=== PATIENT | female | born 1960 | race Caucasian/White ===

== ENCOUNTER 2018-07-06 03:28 | Inpatient (IN) | payer BC, SELFPAY ==
[2018-07-06] VITALS (14 sets, daily range): BP systolic 91–118; BP diastolic 61–79; PULSE 73–130; RESP 14–18; TEMP 36.1–38.3; O2SAT 97–100; BMI 23.3; BMI 23.4
--- NOTE | 2018-07-06 03:30 | CT_ITS ---
STUDY: CT ABDOMEN AND PELVIS WITH CONTRAST REASON FOR EXAM: Female, 58 years old. Abdominal pain RADIATION DOSAGE (If Supplied By Facility): CTDIvol = ( 11.45 ) mGy, DLP = ( 486.85 ) mGycm TECHNIQUE: Transaxial images were obtained from the dome of the diaphragm to the symphysis pubis without oral contrast. 100ML ml of Isovue 300 contrast was administered. Sagittal and coronal images were reconstructed. Individualized dose optimization techniques were used for this CT. COMPARISON: None. FINDINGS: The lung bases are clear. There is a previous cholecystectomy with a mildly dilated intrahepatic biliary radicles and a prominent common bile duct 9.6 mm. Multiple filling defects are seen within the common bile duct and may represent calculi or sludge balls. The spleen is normal. The pancreas is normal. Both adrenals are normal. The left kidney is normal. There is a benign 2.1 cm right renal cyst. A second 8 mm cyst is in the posterior aspect of the right kidney. The stomach is normal. There is no bowel distention, acute appendicitis or diverticulitis. No constricting lesions are seen in large bowel. The abdominal wall is intact with no hernias. There is no ascites or any free intraperitoneal air. No indication of epiploic appendagitis there is a 8.1 x 4.3 cm area of diverticulitis in the mid abdomen. The vascular structures in the retroperitoneum are normal. There is no retrocrural, retroperitoneal or mesenteric adenopathy. The bones and joints are normal. The urinary bladder is normal.--The uterus is normal. There is no inguinal or pelvic adenopathy. There is no inguinal hernia. . CT/Abdomen/Pelvis W IV Cont ONLY IMPRESSION: A previous cholecystectomy with slightly dilated intrahepatic biliary radicles and a prominent common bile duct. (9.6 mm) There are multiple filling defects within the common bile duct. These may represent evidence of choledocholithiasis or sludge balls. No acute appendicitis or diverticulitis. 2 small renal cysts. Electronically Signed: Ralph Snyder, at 5:05 EDT Tel , Service support ,
--- NOTE | 2018-07-06 03:34 | ED.DCSUM_ITS ---
- ER Visit Summary Date of Service: 07/06/18 Chief Complaint: Abdominal pain History of Present Illness: The patient is a 58 F presents to the emergency department with abdominal pain. The patient is otherwise healthy which takes no daily medications. She states that tonight, she began have a dull ache in her midepigastric area that went through to her back. She states that the pain got worse throughout the night. She states that she was nauseated. States last time that she ate was yesterday for lunch. She had chicken noodle soup. She states it did not bring on the pain. The patient was with her friend sonal. She does admit to drinking wine. She denies any history of pancreatitis. She did have cholecystectomy about a year ago. She denies any fevers but does admit to some chills and sweats. She denies any chest pain. Physical Examination: Vital signs reviewed General: Well-nourished, well-developed Head: Normocephalic, atraumatic Eyes: Pupils equal and reactive, extraocular muscles intact Neck, supple, no lymphadenopathy Heart: Regular rate and rhythm Respiratory: No distress, clear bilaterally Abdomen: Soft, tender in the midepigastric area without rebound or guarding, nondistended, no peritoneal signs Back: Nontender Extremities: Nontender, no edema, no cords Skin: Normal color no rash Neuro: Alert and oriented, no focal or lateralizing deficits Test Results: [] Emergency Department Course and Treatment: The patient presents with midepigastric pain into her right upper quadrant. She actually states that she had the same pain before when she had of her gallbladder out. She was admitted for 5 days at [facility] 1 year ago. Based on her history, it sounds like she had gallstone pancreatitis. She underwent ERCP and then 2 days later had her gallbladder removed. She states she has been doing well since. Sonal was the first time that she had pain this severe. IV was established. Patient was given analgesics and antiemetics. She had marked improvement of her pain. Screening labs do show leukocytosis. She does have obstructive pattern of her LFTs. I did obtain a CT of the abdomen and pelvis. This does show evidence of cold the toe cholelithiasis with distention of the common bile duct. The patient was discussed with Dr. Baptiste. She will be admitted for likely ERCP and management of her biliary duct obstruction. Patient was started on broad-spectrum antibiotics. Treatment Plan: [] Disposition: Admission Impression: 1. Biliary obstruction secondary to choledocholithiasis This note was generated with [employer] dictation software. It may contain incorrect words, spelling, and punctuation that were not noted in review of the chart prior to signing ED Disposition - Plan for ED Patient: Chief Complaint: Abd Pain Referrals: Trenton Pedersen MD [Primary Care Provider] -
[2018-07-06] MEDS: 0.9% Normal Saline 1,000 ML 1000 ML IV (03:36)
[2018-07-06] MEDS: Ondansetron 4 MG/2 ML Vial IV ×2 (03:36→11:53)
[2018-07-06] MEDS: Morphine 4 MG/ML Syringe IV (03:37)
[2018-07-06 03:52] LABS: Absolute Lymphocyte Count 2.61 X10^3/ul (0.83-4.51); Absolute Neutrophil Count 9.5 X10^3/uL (2.0-7.7); Basophil# 0.03 X10^3/uL; Basophil% 0.2 % (0-1); Eosinophil# 0.18 X10^3/uL; Eosinophils% 1.4 % (0-5); Hematocrit 36.3 % (37-47); Hemoglobin 12.1 g/dl (12.0-15.0); Lymphocyte # 2.61 X10^3/ul (4.0); Lymphocyte % 20.1 % (19-41); Mean Corp Hgb Conc 33.3 g/gl (32-36); Mean Corpuscular Hgb 30.9 pg (27.0-32.0); Mean Corpuscular Volume 92.8 fL (81-99); Monocyte# 0.68 X10^3/uL; Monocyte% 5.2 % (0-10); Neutrophil # 9.46 X10^3/uL (2.7-7.7); Neutrophil % 72.9 % (47-70); POSITIVE COUNT NO; POSITIVE DIFFERENTIAL NO; POSITIVE MORPHOLOGY NO; Platelet Count 334 K/mm3 (150-450); RBC Distribution Width CV 13.6 % (11.6-14.6); RBC Distribution Width SD 45.3 fl (35.1-43.9); Red Blood Count 3.91 M/mm3 (4.2-5.4)
[2018-07-06 04:13] LABS: Bacteria 0 SEEN /hpf (None Seen); Mucous, Urine 0 SEEN /hpf (<or=2+); Red Blood Cells-Urine 0 SEEN /hpf (0-5); Squamous Epithelial Cells - UA 0 SEEN /hpf (5-10)
[2018-07-06 04:15] LABS: Color, Urine Yellow (Yellow); Glucose, Dipstick Normal (Normal); Ketone-Dipstick 15 mg/dl (Negative); Leukocyte Esterase-Dipstick 25 /ul (Negative); Nitrite-Dipstick Negative (Negative); Occult Blood-Urine 10 /ul (Negative); Protein-Dipstick Negative (Negative); Urine Clarity Clear (Clear); Urine Urobilinogen 4 mg/dl (Normal)
[2018-07-06 04:22] LABS: Urine Bilirubin Dipstick 1 mg/dL (Negative); White Blood Cells 0-5 SEEN /hpf (0-5)
[2018-07-06 04:29] LABS: ALB/GLOB Ratio 0.9 RATIO (0.9-2.4); AST(SGOT) 278 U/L (15-37); Alanine Aminotransfer ALT/SGPT 500 U/L (13-56); Albumin, Serum 3.6 g/dL (3.2-5.0); Alkaline Phosphatase 352 U/L (45-117); Anion Gap 9 (5-15); BUN 12 mg/dL (7-18); BUN/Creat Ratio 15.6 RATIO (10-20); Calcium,Total 9.2 mg/dL (8.5-10.1); Chloride 104 mmol/L (98-107); Creatinine, Serum 0.77 mg/dL (0.55-1.02); EST Glomerular Filtration Rate 82 mL/min (>60); Est Glom Filt Rate - Afr Amer 99 mL/min (>60); Estimated Creatinine Clearance 65.07 ml/min; Glucose 134 mg/dL (74-106); Lipase 523 U/L (73-393); Potassium 3.3 mmol/L (3.5-5.1); Protein, Total 7.6 g/dL (6.4-8.2); Sodium Level 141 mmol/L (136-145)
[2018-07-06] MEDS: 0.9% Normal Saline 1,000 ML 150 ML IV (05:38)
[2018-07-06] MEDS: Lactated Ringers 1,000 ML 150 ML IV ×2 (06:27→11:53)
[2018-07-06] MEDS: Lactated Ringers 1,000 ML 999 ML IV (06:41)
[2018-07-06] MEDS: Acetaminophen 325 MG Tablet 650 MG PO (06:44)
--- NOTE | 2018-07-06 07:59 | PCM.HP.STD ---
Problem List (1) Cholangitis Status: Acute (2) Choledocholithiasis Status: Acute History of Present Illness Date of Admission: 07/06/18 The patient is a 58 year old F who presented with right upper quadrant and epigastric pain since this morning. The patient says she is not having any nausea or vomiting. She did not have a fever upon presentation to the emergency room but did develop one on the floor. The patient reports that she had her gallbladder out and subsequent ERCP about 1 year ago for choledocholithiasis. Past Medical History Allergies ciprofloxacin [From Cipro] Allergy (Verified 07/06/18 03:34) Hives Home Medications: Ambulatory Orders Medication Instructions Recorded NK [NK] 07/06/18 Surgical History: cholecystectomy Smoking Status: Former smoker - *Family History Maternal History Items: No pertinent history Review of Systems Constitutional: Reports: Anorexia, Fever. Denies: Chills HEENT: Denies: Difficulty Swallowing Cardiovascular: Denies: Chest Pain Respiratory: Denies: Cough, Pleuritic Pain, Shortness of Breath Gastrointestinal: Reports: Abdominal Pain, Nausea. Denies: Vomiting Genitourinary: Denies: Dysuria Musculoskeletal: Denies: Joint Tenderness Skin: Reports: Jaundice. Denies: Dryness Psychiatric: Denies: Anxiety Hematologic/ Lymphatic: Denies: Anemia VTE Information - Inpt Only VTE Present on Admission: No VTE Mechan Device Prophylaxis: SCD's Patient Problems: Active and Suspected Problems Cholangitis (Acute) Choledocholithiasis (Acute) - Physical Exam General: Alert, Oriented x3, Cooperative HEENT: Atraumatic Oral: Moist Mucosa Neck: No JVD Lungs: Normal air movement Cardiovascular: Regular Rhythm, Tachycardic Abdomen: Soft, Non-Distended, Tender - Right upper quadrant and epigastric Extremities: No clubbing Musculoskeletal: No Muscle Wasting Neurological: Cranial nerves II-XII grossly intact Psych/Mental Status: Normal Affect Vital Signs Temp Pulse Resp BP Pulse Ox 99.4 F H 130 H 18 117/70 97 07/06/18 07:41 07/06/18 07:47 07/06/18 07:41 07/06/18 07:41 07/06/18 07:41 Oxygen Delivery Method Room Air Weight: 132 lb Body Mass Index (BMI) 23.3 Clinical Impression(s) from Imaging Studies Abdomen/Pelvis CT 07/06/18 03:30 IMPRESSION: A previous cholecystectomy with slightly dilated intrahepatic biliary radicles and a prominent common bile duct. (9.6 mm) There are multiple filling defects within the common bile duct. These may represent evidence of choledocholithiasis or sludge balls. No acute appendicitis or diverticulitis. 2 small renal cysts. Electronically Signed: Ralph Snyder, at 5:05 EDT Tel , Service support , Assessment/Plan All Active Problems Cholangitis (Acute) Choledocholithiasis (Acute) 58-year-old female with choledocholithiasis and ascending cholangitis 1. The patient's lipase was slightly elevated indicating pancreatitis and the patient had epigastric pain. CT scan reveals choledocholithiasis with dilated biliary ducts and her LFTs are elevated as well. The patient is also tachycardic with a fever. Given all these things I believe she has ascending cholangitis. She has been started on antibiotics and given a fluid bolus as well as Tylenol for her fever. 2. I recommend ERCP with stone removal and placement of stent for the cholangitis. I explained the procedure in detail to the patient and she has had an ERCP in the past. I explained the risks of the procedure including but not limited to bleeding, infection, perforation of the bile duct or bowels, worsening of the pancreatitis. The patient understands the risks and is willing to proceed with ERCP. Anival Mahoney MD Pager: [facility] [address] [place] [address] [address] [place] [address] Office:
--- NOTE | 2018-07-06 08:04 | HP.PCM_ITS ---
Problem List (1) Cholangitis Status: Acute (2) Choledocholithiasis Status: Acute History of Present Illness Date of Admission: 07/06/18 The patient is a 58 year old F who presented with right upper quadrant and epigastric pain since this morning. The patient says she is not having any nausea or vomiting. She did not have a fever upon presentation to the emergency room but did develop one on the floor. The patient reports that she had her gallbladder out and subsequent ERCP about 1 year ago for choledocholithiasis. Past Medical History Allergies ciprofloxacin [From Cipro] Allergy (Verified 07/06/18 03:34) Hives Home Medications: Ambulatory Orders Medication Instructions Recorded NK [NK] 07/06/18 Surgical History: cholecystectomy Smoking Status: Former smoker - *Family History Maternal History Items: No pertinent history Review of Systems Constitutional: Reports: Anorexia, Fever. Denies: Chills HEENT: Denies: Difficulty Swallowing Cardiovascular: Denies: Chest Pain Respiratory: Denies: Cough, Pleuritic Pain, Shortness of Breath Gastrointestinal: Reports: Abdominal Pain, Nausea. Denies: Vomiting Genitourinary: Denies: Dysuria Musculoskeletal: Denies: Joint Tenderness Skin: Reports: Jaundice. Denies: Dryness Psychiatric: Denies: Anxiety Hematologic/ Lymphatic: Denies: Anemia VTE Information - Inpt Only VTE Present on Admission: No VTE Mechan Device Prophylaxis: SCD's Patient Problems: Active and Suspected Problems Cholangitis (Acute) Choledocholithiasis (Acute) - Physical Exam General: Alert, Oriented x3, Cooperative HEENT: Atraumatic Oral: Moist Mucosa Neck: No JVD Lungs: Normal air movement Cardiovascular: Regular Rhythm, Tachycardic Abdomen: Soft, Non-Distended, Tender - Right upper quadrant and epigastric Extremities: No clubbing Musculoskeletal: No Muscle Wasting Neurological: Cranial nerves II-XII grossly intact Psych/Mental Status: Normal Affect Vital Signs Temp Pulse Resp BP Pulse Ox 99.4 F H 130 H 18 117/70 97 07/06/18 07:41 07/06/18 07:47 07/06/18 07:41 07/06/18 07:41 07/06/18 07:41 Oxygen Delivery Method Room Air Weight: 132 lb Body Mass Index (BMI) 23.3 Clinical Impression(s) from Imaging Studies Abdomen/Pelvis CT 07/06/18 03:30 IMPRESSION: A previous cholecystectomy with slightly dilated intrahepatic biliary radicles and a prominent common bile duct. (9.6 mm) There are multiple filling defects within the common bile duct. These may represent evidence of choledocholithiasis or sludge balls. No acute appendicitis or diverticulitis. 2 small renal cysts. Electronically Signed: Ralph Snyder, at 5:05 EDT Tel , Service support , Assessment/Plan All Active Problems Cholangitis (Acute) Choledocholithiasis (Acute) 58-year-old female with choledocholithiasis and ascending cholangitis 1. The patient's lipase was slightly elevated indicating pancreatitis and the patient had epigastric pain. CT scan reveals choledocholithiasis with dilated biliary ducts and her LFTs are elevated as well. The patient is also tachycardic with a fever. Given all these things I believe she has ascending cholangitis. She has been started on antibiotics and given a fluid bolus as well as Tylenol for her fever. 2. I recommend ERCP with stone removal and placement of stent for the cholangitis. I explained the procedure in detail to the patient and she has had an ERCP in the past. I explained the risks of the procedure including but not limited to bleeding, infection, perforation of the bile duct or bowels, worsening of the pancreatitis. The patient understands the risks and is willing to proceed with ERCP. Anival Mahoney MD Pager: [facility] [address] [place] [address] [address] [place] [address] Office:
--- NOTE | 2018-07-06 10:40 | CASEMGMT ---
ABELINO RAJPUT Face to Face with patient for initial transition planning/care coordination assessment. RN CM introduced self and role at [facility]. Patient lying in bed, alert and oriented, at bedside. Patient willing to participate in assessment and is able to answer all questions appropriately. Care providers, pharmacy, and demographics verified. Patient lives in house with . Patient is independent at home. Patient wishes to discharge home, denies need for home health at this time. Patient states she has no further needs or concerns at this time. CM to follow for discharge planning needs that may arise. Disposition Plan: Patient to discharge home with family support and follow-up plans in place. Mary SINCLAIR, RN, CM
[2018-07-06] MEDS: 0.9% NaCl Peripheral Flush Adult/Peds IV (11:53)
--- NOTE | 2018-07-06 12:02 | NURSING ---
REport called to Augusta Masters RN
--- NOTE | 2018-07-06 12:40 | RAD_ITS ---
STUDY: ERCP. REASON FOR EXAM: Female, 58 years old. Biliary obstruction. FLUOROSCOPY TIME (if supplied): (4 minutes) minutes/seconds TECHNIQUE: An ERCP was performed by the surgeon. Contrast was injected into the common bile duct. COMPARISON: Comparison is made with prior CT scan of the abdomen done earlier in the day. FINDINGS: Contrast was injected into the common bile duct. The common bile duct is dilated. No contrast is seen flowing into the duodenum. A biliary stent was then placed. RAD/ERCP Biliary Only IMPRESSION: Dilated common bile duct with placement of a biliary stent. Electronically Signed: Parviz Goddard MD at 13:39 EDT Tel [phone], Service support ,
--- NOTE | 2018-07-06 13:16 | PCM.OPRPT ---
Problem List (1) Cholangitis Status: Acute (2) Choledocholithiasis Status: Acute Report of Operation Date of Procedure: 07/06/18 Pre-Operative Diagnosis: 1. Choledocholithiasis with obstruction. 2. Ascending cholangitis Post-Operative Diagnosis: Same Surgery/Procedure Performed:: ERCP with sphincterotomy and stone removal and stent placement Description of Procedure: After describing the risks of the procedure as well as the procedure in detail informed consent was obtained. Patient was brought to the operating room and general anesthesia was induced. The patient was then placed in a semi-prone position. Next, the side-viewing endoscope was placed into the mouth and down into the stomach and advanced into the duodenum. The ampulla was located. A sphinctertome was used to cannulate the common bile duct and location was confirmed on fluoroscopy. The guidewire was placed in the common bile duct and using sphincterotome and electrocautery a sphincterotomy was performed. Hemostasis was good. Next the sphincterotome was removed leaving the guidewire in the common bile duct. A balloon was then introduced over the guidewire and the common bile duct and several sweeps were performed. The patient did have a lot of sludge and debris but there was a stone identified. A basket was then placed into the common bile duct and the stone was crushed. Next the basket was removed from the common bile duct and the balloon was placed back into the common bile duct and several sweeps were performed and a lot of debris was removed from the common bile duct. There was purulent material as well. Once the duct was adequately clear of stones, a 10 [place] by 5 cm balloon was placed into the common bile duct. This was deployed under fluoroscopy. The guidewire was then removed. There was good flow of bile and purulent material through the stent at the end of the case. The side-viewing scope was then withdrawn back into the stomach and the stomach was suctioned. Next, the scope was removed. The patient was taken to PACU in stable condition. The patient tolerated the procedure well. Grafts/Implants Used: 10 Argentine 5 cm biliary plastic stent
[2018-07-06] MEDS: Piperacil/Tazobactam 3.375 GM/50 ML ML IV ×2 (13:48→20:54)
[2018-07-06] MEDS: Lactated Ringers 1,000 ML 100 ML IV (20:56)
[2018-07-07 02:50] VITALS: BP 94/54; PULSE 70; RESP 14; TEMP 36.4; O2SAT 97
[2018-07-07] MEDS: Piperacil/Tazobactam 3.375 GM/50 ML ML IV (05:43)
[2018-07-07 05:46] VITALS: BP 99/55; PULSE 79; RESP 16; TEMP 36.5; O2SAT 96
[2018-07-07 06:19] LABS: Absolute Lymphocyte Count 1.23 X10^3/ul (0.83-4.51); Absolute Neutrophil Count 5.7 X10^3/uL (2.0-7.7); Basophil# 0.01 X10^3/uL; Basophil% 0.1 % (0-1); Eosinophil# 0.03 X10^3/uL; Eosinophils% 0.4 % (0-5); Hematocrit 33.7 % (37-47); Hemoglobin 11.1 g/dl (12.0-15.0); Lymphocyte # 1.23 X10^3/ul (4.0); Lymphocyte % 16.5 % (19-41); Mean Corp Hgb Conc 32.9 g/gl (32-36); Mean Corpuscular Hgb 30.7 pg (27.0-32.0); Mean Corpuscular Volume 93.1 fL (81-99); Mean Platelet Vol. 9.2 fl (6.2-12.0); Monocyte# 0.52 X10^3/uL; Neutrophil # 5.66 X10^3/uL (2.7-7.7); Neutrophil % 75.9 % (47-70); Platelet Count 277 K/mm3 (150-450); RBC Distribution Width CV 14.1 % (11.6-14.6); RBC Distribution Width SD 46.3 fl (35.1-43.9); Red Blood Count 3.62 M/mm3 (4.2-5.4); White Blood Count 7.5 K/mm3 (4.4-11.0)
[2018-07-07 06:28] LABS: POSITIVE COUNT NO; POSITIVE DIFFERENTIAL NO; POSITIVE MORPHOLOGY NO
[2018-07-07 06:36] LABS: ALB/GLOB Ratio 0.8 RATIO (0.9-2.4); AST(SGOT) 166 U/L (15-37); Alanine Aminotransfer ALT/SGPT 417 U/L (13-56); Albumin, Serum 2.9 g/dL (3.2-5.0); Alkaline Phosphatase 291 U/L (45-117); Anion Gap 8 (5-15); BUN 9 mg/dL (7-18); BUN/Creat Ratio 12.9 RATIO (10-20); Calcium,Total 8.7 mg/dL (8.5-10.1); Chloride 108 mmol/L (98-107); EST Glomerular Filtration Rate 92 mL/min (>60); Est Glom Filt Rate - Afr Amer 111 mL/min (>60); Estimated Creatinine Clearance 71.58 ml/min; Globulin 3.5 g/dL (2.2-4.2); Glucose 96 mg/dL (74-106); Potassium 3.9 mmol/L (3.5-5.1); Protein, Total 6.4 g/dL (6.4-8.2); Sodium Level 143 mmol/L (136-145)
--- NOTE | 2018-07-07 08:26 | PN.SURG_ITS ---
Patient Problems: Active and Suspected Problems Cholangitis (Acute) Choledocholithiasis (Acute) Subjective: Patient is doing well this morning with no abdominal pain. She is tolerating clear liquid diet with no nausea or vomiting. - Physical Exam General: Alert, Oriented x3, Cooperative, No apparent distress HEENT: Atraumatic Lungs: Normal air movement Cardiovascular: Regular rate, Regular Rhythm Abdomen: Soft, Non Tender, Non-Distended Vital Signs Temp Pulse Resp BP Pulse Ox 97.7 F L 79 16 99/55 L 96 07/07/18 05:46 07/07/18 05:46 07/07/18 05:46 07/07/18 05:46 07/07/18 05:46 Oxygen Delivery Method Room Air Weight: 131 lb 15.852 oz Body Mass Index (BMI) 23.3 Intake and Output for Last 24 Hours 07/05/18 07/06/18 07/07/18 23:59 23:59 23:59 Intake Total 2782 / 2782 482 / 482 Output Total 3525 / 3525 300 / 300 Balance -743 / -743 182 / 182 Laboratory Tests Past 24 Hrs 07/07/18 07/07/18 06:00 06:00 WBC 7.5 RBC 3.62 L Hgb 11.1 L Hct 33.7 L MCV 93.1 MCH 30.7 MCHC 32.9 RDW 14.1 RDW Differential 46.3 H Plt Count 277 MPV 9.2 Immature Gran % (Auto) 0.100 Neut % (Auto) 75.9 H Lymph % (Auto) 16.5 L [place] % (Auto) 7.0 Eos % (Auto) 0.4 Baso % (Auto) 0.1 Absolute Neuts (auto) 5.7 Absolute Lymphs (auto) 1.23 Total Counted Not Reportable Sodium 143 Potassium 3.9 Chloride 108 H Carbon Dioxide 27.0 Anion Gap 8 BUN 9 Creatinine 0.70 Estim Creat Clear Calc 71.58 Est GFR (MDRD) Af Amer 111 Est GFR (MDRD) Non-Af 92 BUN/Creatinine Ratio 12.9 Glucose 96 Calcium 8.7 Total Bilirubin 1.60 H AST 166 H ALT 417 H Alkaline Phosphatase 291 H Total Protein 6.4 Albumin 2.9 L Globulin 3.5 Albumin/Globulin Ratio 0.8 L Medical Necessity - Tobacco Use Smoking Status: Former smoker Assessment/Plan All Active Problems Cholangitis (Acute) Choledocholithiasis (Acute) 58-year-old female with cholangitis status post ERCP with stent placement 1. Patient is doing well. If she tolerates regular diet she may be discharged home. 2. I will start the patient on p.o. antibiotics and continue for 5 days for cholangitis. 3. I will see the patient back for outpatient ERCP and stent removal in 2-4 weeks. Anival Mahoney MD Pager: [facility] [address] [place] [address], [address] [place] [address] Office:
--- NOTE | 2018-07-07 08:26 | PCM.DC.GB ---
Discharge Diet: Light diet - advance as tolerated Discharge Activity: Return to Normal Activity Weight Bearing Status: Weight bearing as tolerated Lifting Restrictions: none Call your doctor if you observe: Fever of 101 or Higher Allergies/Adverse Reactions: Allergies ciprofloxacin [From Cipro] Allergy (Verified 07/06/18 03:34) Hives Medications to take at Discharge Amoxicillin/Potassium Clav [Augmentin 875-125 Tablet] 1 ea PO BID #10 tab 07/07/18 The following prescriptions were given: Amoxicillin/Potassium Clav [Augmentin 875-125 Tablet] 1 ea PO BID #10 tab Primary Care Physician: Trenton Pedersen MD [Primary Care Provider] - Test Results: Test results from this visit will be discussed in further detail at your follow-up appointment, if applicable. Please Follow Up With: Anival Mahoney MD When: follow up as needed, my office will call to schedule repeat ERCP
--- NOTE | 2018-07-07 08:28 | PCM.DC.SUM ---
Discharge Date and Diagnosis - Problem List Patient Problems: Active and Suspected Problems Cholangitis (Acute) Choledocholithiasis (Acute) Date of Admission: 07/06/18 Date of Discharge: 07/07/18 - Primary Discharge Diagnosis Active and Suspected Problems Cholangitis (Acute) Choledocholithiasis (Acute) Hospital Course and Treatment Imaging Results: Clinical Impression(s) from Imaging Studies Abdomen/Pelvis CT 07/06/18 03:30 IMPRESSION: A previous cholecystectomy with slightly dilated intrahepatic biliary radicles and a prominent common bile duct. (9.6 mm) There are multiple filling defects within the common bile duct. These may represent evidence of choledocholithiasis or sludge balls. No acute appendicitis or diverticulitis. 2 small renal cysts. Electronically Signed: Ralph Snyder, at 5:05 EDT Tel , Service support , ERCP X-Ray 07/06/18 12:40 IMPRESSION: Dilated common bile duct with placement of a biliary stent. Electronically Signed: Parviz Goddard MD at 13:39 EDT Tel [phone], Service support , Operations: ERCP Procedures: None Summary of Care Provided: The patient is a 58 year old F who presented with right-sided abdominal pain and nausea. The patient had a CT scan which revealed dilated biliary ducts as well as an obstruction. The patient was also febrile with an elevated white count and jaundice. The patient had what seems to be ascending cholangitis. She underwent ERCP with stent placement and purulent material was removed from the common bile duct. After the procedure she was tolerating a regular diet and her abdominal pain resolved and her LFTs decreased. She will be discharged home on oral antibiotic and return in 2-4 weeks for ERCP with stent removal. Discharge Diet: Light diet - advance as tolerated Discharge Activity: Return to Normal Activity Weight Bearing Status: Weight bearing as tolerated Call your doctor if you observe: Fever of 101 or Higher Home Medications: Medications to take at Discharge Amoxicillin/Potassium Clav [Augmentin 875-125 Tablet] 1 ea PO BID #10 tab 07/07/18 Following Prescrptions Were Given to Patient: Amoxicillin/Potassium Clav [Augmentin 875-125 Tablet] 1 ea PO BID #10 tab Primary Care Physician: Trenton Pedersen MD [Primary Care Provider] - Please Follow Up With: Anival Mahoney MD When: follow up as needed, my office will call to schedule repeat ERCP Medical Necessity - Tobacco Use Smoking Status: Former smoker Meaningful Use Info Meaningful Use Diagnoses (Choose all that apply): None applicable
[2018-07-07 11:04] VITALS: BP 99/57; PULSE 78; RESP 18; TEMP 36.8; O2SAT 97
== END 2018-07-07 11:50 | disposition home or self-care (01) | DRG 445 ==
LOC: ED 04:01 → MS3 05:34
PROVIDERS: Admitting Provider Surgery; Emergency Provider Emergency Medicine; Family Provider Family Medicine; PCP Family Medicine; Visit Provider Surgery
PROC: 0FC98ZZ Extirpation of Matter from Common Bile Duct, Via Natural or Artificial Opening Endoscopic (ICD-10-PCS; CPT 43260; principal; 2018-07-06 11:30)
DX: K80.31 Calculus of bile duct with cholangitis, unspecified, with obstruction (principal); Z90.49 Acquired absence of other specified parts of digestive tract
CPT/HCPCS: 36415; 74177; 74328; 76000; 80053; 81001; 83690; 85025; 99282; J7030; J7120; Q9967; A4216; J2405

== ENCOUNTER 2018-08-04 09:16 | Day surgery (SDC) | payer BC, SELFPAY ==
[2018-08-04] VITALS (8 sets, daily range): BP systolic 102–126; BP diastolic 56–85; PULSE 73–98; RESP 16; TEMP 36.5–37.5; O2SAT 98–100; BMI 24.2
--- NOTE | 2018-08-04 09:27 | EKG12_ITS ---
Test Reason : PREOP Blood Pressure : / mmHG Vent. Rate : 096 BPM Atrial Rate : 096 BPM P-R Int : 148 ms QRS Dur : 086 ms QT Int : 364 ms P-R-T Axes : 067 040 021 degrees QTc Int : 459 ms Normal sinus rhythm Normal ECG When compared with ECG of 23-NOV-2011 08:51, T wave amplitude has decreased in Anterior leads Confirmed by JOAQUIN MARCIAL, FEMI ([id number]), science editor JULIUS HERCULES ([id number]) on 08/08/2018 4:10:06 PM Referred By: Anival Mahoney Confirmed By:FEMI NUÑEZ MD
--- NOTE | 2018-08-04 10:24 | PCM.HP.STD ---
Problem List (1) Cholangitis Status: Acute (2) Choledocholithiasis Status: Acute History of Present Illness Date of Admission: 08/04/18 The patient is a 58 year old F who was recently admitted for a ascending cholangitis and underwent ERCP. On an ERCP she did have sludge with purulence in the common bile duct. A stent was placed. She is here for stent removal. She is having no issues since surgery. Past Medical History Allergies ciprofloxacin [From Cipro] Allergy (Verified 08/02/18 15:29) Hives Home Medications: Ambulatory Orders Medication Instructions Recorded NK 08/02/18 Surgical History: cholecystectomy Smoking Status: Former smoker - *Family History Maternal History Items: No pertinent history Review of Systems Constitutional: Denies: Anorexia, Chills HEENT: Denies: Head Aches, Sinus Congestion, Sinus Drainage Cardiovascular: Denies: Chest Pain, Palpitations Respiratory: Denies: Cough, Shortness of breath at rest, Sputum production Gastrointestinal: Denies: Abdominal Pain, Nausea, Vomiting Genitourinary: Denies: Dysuria Musculoskeletal: Denies: Joint Pain, Joint Tenderness Skin: Denies: Rash, Wounds Neurological: Denies: Numbness, Tingling, Focal weakness Psychiatric: Denies: Anxiety, Depression, Homicidal Ideations, Suicidal Ideations Hematologic/ Lymphatic: Denies: Easy Bruising, Easy Bleeding VTE Information - Inpt Only VTE Present on Admission: No VTE Mechan Device Prophylaxis: SCD's - Physical Exam General: Alert, Oriented x3, Cooperative HEENT: Atraumatic, PERRLA, EOMI, Normocephalic Neck: Supple, No JVD, Negative Carotid Bruits Lungs: Clear to auscultation, Normal air movement Cardiovascular: Regular rate, No murmurs Abdomen: Bowel Sounds Present, Soft, Non Tender Extremities: No edema, Capillary Refill Less than 3 Seconds Skin: No rashes, No breakdown Musculoskeletal: No Tenderness to Palpation of Joints or Extremities Neurological: Cranial nerves II-XII grossly intact Psych/Mental Status: Normal Affect, Appropriate Vital Signs Temp Pulse Resp BP Pulse Ox 99.5 F H 98 16 126/85 H 99 08/04/18 09:38 08/04/18 09:38 08/04/18 09:38 08/04/18 09:38 08/04/18 09:38 Oxygen Delivery Method Room Air Weight: 136 lb 10.986 oz Body Mass Index (BMI) 24.2 Assessment/Plan All Active Problems Cholangitis (Acute) Choledocholithiasis (Acute) 58-year-old female with a ascending cholangitis and stent 1. Patient is here for ERCP with stent removal. I explained that I would remove the stent and check for any more debris in the common bile duct. If the common bile duct is clear and there is clean flowing bile I will remove the stent and be done with the procedure. I explained the risks of ERCP including but not limited to bleeding, infection, perforation of the bile duct or bowel, pancreatitis. The patient understands risks and is willing to proceed with ERCP and stent removal. Anival Mahoney MD Pager: [facility] [address] [place] [address] [address] [place] [address] Office:
--- NOTE | 2018-08-04 11:00 | RAD_ITS ---
CLINICAL HISTORY: Female, 58 years old. Abdominal pain with dilated bile ducts and biliary stent. PROCEDURE: CHOLANGIOGRAM - INTRAOPERATIVE FLUOROSCOPY TIME (if supplied): (1:46) minutes/seconds Placement of the catheter and the procedure were performed by: Anival Mahoney M.D. Comparison: Cholangiogram, intraoperative 07/06/2018. Fluoroscopy was provided by Department of Radiology and supervise, directed and reviewed by the attending physician. Radiologist not present intraoperatively. TECHNIQUE: Endoscope is seen with contrast filling a dilated common bile duct and common hepatic duct with filling defect noted intraluminally, may represent choledocholithiasis or sludge balls. No contrast is seen in the duodenum. Neoplasm not excluded. Please see intraoperative report for additional details. RAD/ERCP Biliary Only IMPRESSION: Please see intraoperative report for additional details. Choledocholithiasis and/or sludge balls with dilated extrahepatic bile ducts. Neoplasm not excluded. Electronically Signed: Leighton Duran, at 11:49 EDT Tel , Service support ,
--- NOTE | 2018-08-04 11:36 | OP.ENDO_ITS ---
Patient Name: Lisa Engle Procedure Date: 08/04/2018 10:55 AM Date of : 1960 Age: 58 Procedure: ERCP Indications: Common bile duct stone(s), Biliary stent removal Providers: Anival Mahoney MD Referring MD: Anival Mahoney MD Medicines: General Anesthesia Patient Profile: She is status post ERCP for sphincterotomy and ERCP for stent within the past month. Complications: No immediate complications. Procedure: Pre-Anesthesia Assessment: - Prior to the procedure, a History and Physical was performed, and patient medications and allergies were reviewed. The patient's tolerance of previous anesthesia was also reviewed. The risks and benefits of the procedure and the sedation options and risks were discussed with the patient. All questions were answered, and informed consent was obtained. Prior Anticoagulants: The patient has taken no previous anticoagulant or antiplatelet agents. After reviewing the risks and benefits, the patient was deemed in satisfactory condition to undergo the procedure. After obtaining informed consent, the scope was passed under direct vision. Throughout the procedure, the patient's blood pressure, pulse, and oxygen saturations were monitored continuously. The [id number] endoscope was introduced through the mouth, and advanced to the duodenum and used to inject contrast into the bile duct. The ERCP was accomplished without difficulty. The patient tolerated the procedure well. Scope In: 11:11:52 AM Scope Out: 11:22:21 AM Total Procedure Duration Time 0 hours 10 minutes 29 seconds Findings: One stent was removed from the biliary tree using a snare. To discover objects, the biliary tree was swept with a 12 mm balloon starting at the bifurcation. Nothing was found. Impression: - One stent was removed from the biliary tree. - The biliary tree was swept and nothing was found. Recommendation: - Return to my office PRN. - Resume previous diet. - Discharge patient to home. Procedure Code(s): --- Professional --- 22060, Endoscopic retrograde cholangiopancreatography (ERCP); with removal of foreign body(s) or stent(s) from biliary/pancreatic duct(s) Diagnosis Code(s): --- Professional --- Z46.59, Encounter for fitting and adjustment of other gastrointestinal appliance and device K80.50, Calculus of bile duct without cholangitis or cholecystitis without obstruction CPT copyright 2017 [employer]. All rights reserved. The codes documented in this report are preliminary and upon scuba diving instructor review may be revised to meet current compliance requirements. Anival Mahoney MD 08/04/2018 11:35:48 AM This report has been signed electronically. Number of Addenda: 0 Note Initiated On: 08/04/2018 10:55 AM
== END 2018-08-04 13:12 | disposition home or self-care (01) ==
LOC: EN 09:18 → AC 09:18
PROVIDERS: Family Provider Family Medicine; PCP Family Medicine; Referring Provider Surgery; Visit Provider Surgery
PROC: (CPT 43260; principal; 2018-08-04 10:30)
DX: Z46.59 Encounter for fitting and adjustment of other gastrointestinal appliance and device (principal); K80.30 Calculus of bile duct with cholangitis, unspecified, without obstruction; Z78.0 Asymptomatic menopausal state; Z90.49 Acquired absence of other specified parts of digestive tract; Z87.891 Personal history of nicotine dependence
CPT/HCPCS: 43275; 74328; 76000; 93005; J7120; C1769; J2405

== ENCOUNTER → 2020-10-02 | Outpatient (CLI) | payer BC, SELFPAY | END | disposition home or self-care (01) | PROVIDERS: PCP Family Medicine; Referring Provider Family Medicine; Visit Provider Family Medicine | DX: U07.1 COVID-19 (principal) | CPT/HCPCS: 87635; U0003 ==

== ENCOUNTER → 2021-06-27 | Outpatient (CLI) | payer BC, SELFPAY | END | disposition home or self-care (01) | PROVIDERS: PCP Family Medicine; Referring Provider Family Medicine; Visit Provider Family Medicine | DX: B34.9 Viral infection, unspecified (principal) | CPT/HCPCS: 87635; U0005; U0003 ==

== ENCOUNTER → 2024-01-14 | Outpatient (CLI) | payer BC, SELFPAY ==
[2024-01-14 11:57] LABS: Absolute Neutrophil Count 4.6 X10^3/uL (2.0-7.7); Basophil# 0.02 X10^3/uL; Basophil% 0.3 % (0-1); Eosinophil# 0.13 X10^3/uL; Eosinophils% 1.8 % (0-5); Hematocrit 41.7 % (37-47); Hemoglobin 13.4 g/dL (12.0-15.0); Lymphocyte % 27.9 % (19-41); Mean Corp Hgb Conc 32.1 g/dL (32-36); Mean Corpuscular Volume 93.3 fL (81-99); Mean Platelet Vol. 9.6 fl (6.2-12.0); Monocyte# 0.44 X10^3/uL; Monocyte% 6.1 % (0-10); NRBC Flagged by Analyzer 0 % (0-5); Neutrophil # 4.55 X10^3/uL (2.7-7.7); Neutrophil % 63.6 % (47-70); Platelet Count 276 K/mm3 (150-450); RBC Distribution Width CV 13.5 % (11.6-14.6); RBC Distribution Width SD 46.5 fl (35.1-43.9); Red Blood Count 4.47 M/mm3 (4.2-5.4); White Blood Count 7.2 K/mm3 (4.4-11.0)
[2024-01-14 12:09] LABS: Vitamin D,25 Hydroxy 34.6 ng/mL
[2024-01-14 12:28] LABS: AST(SGOT) 16 U/L (15-37); Alanine Aminotransfer ALT/SGPT 22 U/L (13-56); Albumin, Serum 3.7 g/dL (3.2-5.0); Alkaline Phosphatase 60 U/L (45-117); Anion Gap 6 (5-15); BUN 16 mg/dL (7-18); BUN/Creat Ratio 21.3 RATIO (10-20); Calcium,Total 9.2 mg/dL (8.5-10.1); Chloride 107 mmol/L (98-107); Cholesterol 244 mg/dL (200); Creatinine, Serum 0.75 mg/dL (0.55-1.02); EST Glomerular Filtration Rate 82 mL/min (>60); Est Glom Filt Rate - Afr Amer 100 mL/min (>60); Globulin 3.8 g/dL (2.2-4.2); Glucose 92 mg/dL (74-106); High Density Lipoprotein 73 mg/dL; Potassium 4.3 mmol/L (3.5-5.1); Protein, Total 7.5 g/dL (6.4-8.2); Sodium Level 140 mmol/L (136-145); Triglycerides 44 mg/dL; Very Low Density Lipoprotein 9 mg/dL (5-40)
== END | disposition home or self-care (01) ==
LOC: MFPLAB 09:43
PROVIDERS: PCP Family Medicine; Visit Provider Family Medicine
DX: E78.00 Pure hypercholesterolemia, unspecified (principal); E55.9 Vitamin D deficiency, unspecified
CPT/HCPCS: 36415; 80050; 80053; 80061; 82306; 84443; 85025